=== PATIENT | female | born 1935 | race Two or more races ===

== ENCOUNTER 2021-08-02 15:42 | Inpatient (IN) | payer MEDICARE ==
[~2021-08-02] VITALS: Ht 162.6 cm; Wt 103.2 kg
[2021-08-02] MEDS ORDERED: SODIUM CHLORIDE 0.9% 1,000 ML IV ONE ×3 (16:00→19:30)
[2021-08-02] MEDS ORDERED: ASPirin 81 mg TAB PO ONE (16:00)
[2021-08-02 16:25] LABS: Basophils # (auto) 0 10 ^3/uL (0-0.2); Basophils % (auto) 0.1 % (0.0-2.0); Eosinophils # (auto) 0 10 ^3/uL (0-0.8); Hematocrit 38.4 % (36.0-46.0); Hemoglobin 13.1 g/dL (12.2-16.2); Lymphocytes # (auto) 0.7 10 ^3/uL (0.4-5.4); Lymphocytes % (auto) 12.9 % (10.0-50.0); Mean Corpuscular Hemoglobin 32.4 pg (28.0-32.0); Mean Corpuscular Hgb Conc. 34.2 g/dL (32.0-36.0); Monocytes # (auto) 0.4 10 ^3/uL (0-1.3); Monocytes % (auto) 7.5 % (0.0-12.0); Neutrophils # (auto) 4.6 10 ^3/uL (1.6-8.6); Neutrophils % (auto) 79.5 % (37.0-80.0); Nucleated Red Blood Cells % 0.1 %; Red Blood Cells 4.04 10^6/uL (4.0-5.20); Red Cell Distribution Width 13.6 % (11.8-14.3); White Blood Cell 5.7 10^3/uL (4.4-10.8)
[2021-08-02] MEDS ORDERED: ONDANSETRON HCL 4 MG/2 ML VIAL IV ONE (16:30)
[2021-08-02] MEDS ORDERED: MORPHINE SULFATE 4 MG/ML SYR/VIAL IV ONE (16:30)
[2021-08-02] MEDS ORDERED: SODIUM CHLORIDE 0.9% 500 ML IVB ONE (16:30)
[2021-08-02 16:42] LABS: Albumin 3.2 g/dL (3.4-5.0); BUN/Creatinine Ratio 22.2; Calcium 8.9 mg/dL (8.5-10.1); Magnesium 2.3 mg/dL (1.6-2.6)
[2021-08-02 16:44] LABS: Bilirubin, Total 0.3 mg/dL (0.2-1.0); Total Protein 7.4 g/dL (6.4-8.2)
[2021-08-02 16:50] LABS: Potassium 2.9 mmol/L (3.5-5.1)
[2021-08-02] MEDS ORDERED: POTASSIUM EFFERVESENT TAB 25 MEQ PO ONE (17:00)
[2021-08-02] MEDS ORDERED: NITROGLYCERIN 0.4 MG SL TAB SL PRN ×2 (18:45→19:30)
[2021-08-02] MEDS ORDERED: LACTATED RINGER'S 1,000 ML IV ONE (18:45)
[2021-08-02] MEDS ORDERED: MORPHINE SULFATE INJECTION 2 MG/ML SYRG IV PRN ×3 (18:45→19:30)
[2021-08-02] MEDS ORDERED: POTASSIUM CHLORIDE 80 MEQ, LIDOCAINE 1% (LOCAL ANESTH.) 6 ML in SODIUM CHL 0.9% 500 ML IV ONE (18:45)
[2021-08-02] MEDS ORDERED: metroNIDAZOLE 500MG/100ML 100 ML IV ONE (19:30)
[2021-08-02] MEDS ORDERED: LORazepam 0.5 MG TAB PO PRN (19:30)
[2021-08-02] MEDS ORDERED: FAMOTIDINE (10MG/ML) 2ML VL IV ONE (19:30)
[2021-08-02] MEDS ORDERED: DOCUSATE SOD 100 MG CAP PO PRN (19:30)
[2021-08-02] MEDS ORDERED: ALUM & MAG HYDROX-SIMETH LIQ(MAALOX) 30 ML PO PRN (19:30)
[2021-08-02] MEDS ORDERED: cefTRIAXone 1GM/50ML D5W 50 ML IV ONE (19:30)
[2021-08-02] MEDS ORDERED: HYDROcodone-ACET 5/325MG TAB PO PRN (19:30)
[2021-08-02] MEDS ORDERED: SOD CHL 0.9%/ KCL 20MEQ 1,000 ML IV SCH (19:30)
[2021-08-02] MEDS: ONDANSETRON HCL 4 MG/2 ML VIAL IV PRN (20:14)
[2021-08-02] MEDS: metroNIDAZOLE 500MG/100ML 100 ML IV SCH (21:59)
[2021-08-02] MEDS: FLORASTOR (S. BOULARDII) 250 MG CAP PO SCH (22:00)
[2021-08-02 23:10] VITALS: BP 150/64
[2021-08-03 00:03] VITALS: BP 150/64
[2021-08-03] MEDS ORDERED: POTASSIUM CHL 20 Meq TABLET PO ONE (00:45)
[2021-08-03] MEDS: POTASSIUM CHL 20MEQ/100ML 100 ML IV SCH ×2 (01:00→02:22)
[2021-08-03] MEDS ORDERED: HYDR-4833 PO (01:08)
[2021-08-03 05:00] VITALS: BP 151/62
[2021-08-03] MEDS: metroNIDAZOLE 500MG/100ML 100 ML IV SCH (06:46)
[2021-08-03 07:06] LABS: Basophils # (auto) 0 10 ^3/uL (0-0.2); Eosinophils # (auto) 0 10 ^3/uL (0-0.8); Hematocrit 34.8 % (36.0-46.0); Hemoglobin 11.7 g/dL (12.2-16.2); Lymphocytes # (auto) 1.1 10 ^3/uL (0.4-5.4); Lymphocytes % (auto) 10.1 % (10.0-50.0); Mean Corpuscular Hgb Conc. 33.5 g/dL (32.0-36.0); Mean Corpuscular Volume 95.5 fL (80.0-100.0); Monocytes # (auto) 0.8 10 ^3/uL (0-1.3); Monocytes % (auto) 7.3 % (0.0-12.0); Neutrophils # (auto) 9.2 10 ^3/uL (1.6-8.6); Neutrophils % (auto) 82.6 % (37.0-80.0); Nucleated Red Blood Cells % 0.1 %; Red Blood Cells 3.65 10^6/uL (4.0-5.20); Red Cell Distribution Width 13.4 % (11.8-14.3); White Blood Cell 11.1 10^3/uL (4.4-10.8)
[2021-08-03 07:15] LABS: Calcium 8.2 mg/dL (8.5-10.1); Magnesium 2.3 mg/dL (1.6-2.6); Potassium 3.8 mmol/L (3.5-5.1)
[2021-08-03 07:16] LABS: INR 1.01 (0.9-1.15); Partial Thromboplastin Time 33.8 sec (23.6-33.0)
[2021-08-03 07:21] LABS: BUN/Creatinine Ratio 25.6; Bilirubin, Total 0.2 mg/dL (0.2-1.0); Phosphorus 2.8 mg/dL (2.5-4.90); Total Protein 6.3 g/dL (6.4-8.2)
[2021-08-03 09:00] VITALS: BP 144/62
[2021-08-03] MEDS: FLORASTOR (S. BOULARDII) 250 MG CAP PO SCH ×2 (09:25→22:33)
[2021-08-03] MEDS: FAMOTIDINE (10MG/ML) 2ML VL IV SCH (09:25)
[2021-08-03] MEDS: cefTRIAXone 1GM/50ML D5W 50 ML IV SCH (09:25)
[2021-08-03] MEDS: ONDANSETRON HCL 4 MG/2 ML VIAL IV PRN (09:31)
[2021-08-03] MEDS ORDERED: ENOXAPARIN SOD 40 MG/0.4 ML SYRINGE SC SCH (10:00)
[2021-08-03 13:13] VITALS: BP 149/59
[2021-08-03 16:49] VITALS: BP 128/50
[2021-08-03 22:00] VITALS: BP 145/85
[2021-08-03] MEDS: ENOXAPARIN SOD 40 MG/0.4 ML SYRINGE SC SCH (22:33)
[2021-08-04 05:00] VITALS: BP 147/77
[2021-08-04 09:00] VITALS: BP 137/41
[2021-08-04] MEDS: cefTRIAXone 1GM/50ML D5W 50 ML IV SCH (09:40)
[2021-08-04] MEDS: ENOXAPARIN SOD 40 MG/0.4 ML SYRINGE SC SCH ×2 (09:40→21:34)
[2021-08-04] MEDS: FLORASTOR (S. BOULARDII) 250 MG CAP PO SCH ×2 (09:41→21:33)
[2021-08-04] MEDS: FAMOTIDINE (10MG/ML) 2ML VL IV SCH (09:41)
[2021-08-04 12:59] VITALS: BP 145/37
[2021-08-04] MEDS ORDERED: DOPamine 1600MCG/ML D5W 250 ML IV SCH ×3 (13:00→15:30)
[2021-08-04] MEDS ORDERED: FUROSEMIDE 20 MG/2 ML VIAL IV ONE (15:30)
[2021-08-04 17:00] VITALS: BP 132/78
[2021-08-04] MEDS: ERGOCALCIFEROL 50,000 UNIT(1.25MG) CAP PO SCH (18:09)
[2021-08-04] MEDS: ACETAMINOPHEN 325 MG TAB PO PRN (21:34)
[2021-08-04 22:00] VITALS: BP 151/56
[2021-08-05] VITALS (8 sets, daily range): BP systolic 94–167; BP diastolic 51–83
[2021-08-05] MEDS ORDERED: DIGOXIN (250MCG/ML) 2 ML AMPULE ONE (01:51)
[2021-08-05] MEDS ORDERED: DIGOXIN (250MCG/ML) 2 ML AMPULE IV ONE ×2 (02:00→02:45)
[2021-08-05 08:13] LABS: BUN/Creatinine Ratio 21.9; Calcium 8.4 mg/dL (8.5-10.1); Magnesium 2.5 mg/dL (1.6-2.6); Potassium 3.6 mmol/L (3.5-5.1)
[2021-08-05 09:22] LABS: Phosphorus 1.7 mg/dL (2.5-4.90)
[2021-08-05] MEDS ORDERED: ENOXAPARIN SOD 100 MG/1 ML SYRINGE SC SCH (10:00)
[2021-08-05] MEDS ORDERED: FUROSEMIDE 20 MG/2 ML VIAL IV ONE (12:00)
[2021-08-05] MEDS: FLORASTOR (S. BOULARDII) 250 MG CAP PO SCH ×2 (12:02→22:06)
[2021-08-05] MEDS ORDERED: POTASSIUM PHOSPHATE 26.4 MEQ in SODIUM CHL 0.9% 100 ML IV ONE (12:30)
[2021-08-05] MEDS: ENOXAPARIN SOD 60 MG/0.6 ML SYRINGE SC SCH (22:07)
[2021-08-06 05:30] VITALS: BP 150/65
[2021-08-06 07:27] LABS: Calcium 8.1 mg/dL (8.5-10.1); Potassium 3.5 mmol/L (3.5-5.1)
[2021-08-06 07:31] LABS: BUN/Creatinine Ratio 34.7; Magnesium 2.6 mg/dL (1.6-2.6); Phosphorus 2.6 mg/dL (2.5-4.90)
[2021-08-06 09:00] VITALS: BP 160/77
[2021-08-06] MEDS ORDERED: POTASSIUM CHL 20 Meq TABLET PO ONE (09:15)
[2021-08-06] MEDS: ENOXAPARIN SOD 60 MG/0.6 ML SYRINGE SC SCH ×2 (11:41→21:08)
[2021-08-06] MEDS: FLORASTOR (S. BOULARDII) 250 MG CAP PO SCH ×2 (11:41→21:08)
[2021-08-06 13:00] VITALS: BP 153/58
[2021-08-06] MEDS: DOPamine 1600MCG/ML D5W 250 ML IV SCH (13:55)
[2021-08-06 17:00] VITALS: BP 158/73
[2021-08-06] MEDS ORDERED: REMDESIVIR PER PHARMACY 0 ML IV SCH (22:00)
[2021-08-06] MEDS ORDERED: REMDESIVIR 200 MG in NS 210ml LOADING DOSE ADULT IV ONE (22:30)
[2021-08-06 23:05] VITALS: BP 134/59
[2021-08-06 23:13] VITALS: BP 153/63
[2021-08-07] VITALS (9 sets, daily range): BP systolic 138–149; BP diastolic 53–96
[2021-08-07 07:34] LABS: Potassium 3.6 mmol/L (3.5-5.1)
[2021-08-07 07:41] LABS: Albumin 2.5 g/dL (3.4-5.0); BUN/Creatinine Ratio 22.7; Bilirubin, Total 0.6 mg/dL (0.2-1.0); Calcium 8.2 mg/dL (8.5-10.1); Total Protein 6.2 g/dL (6.4-8.2)
[2021-08-07] MEDS: ENOXAPARIN SOD 60 MG/0.6 ML SYRINGE SC SCH ×2 (10:22→22:08)
[2021-08-07] MEDS: FLORASTOR (S. BOULARDII) 250 MG CAP PO SCH ×2 (10:22→22:08)
[2021-08-07] MEDS: DOPamine 1600MCG/ML D5W 250 ML IV SCH (14:04)
[2021-08-07] MEDS: REMDESIVIR 100mg 100 MG in SODIUM CHL 0.9% 230 ML IV SCH (14:04)
[2021-08-07] MEDS ORDERED: POTASSIUM CHL 20 Meq TABLET PO ONE (14:30)
[2021-08-08 05:00] VITALS: BP 151/51
[2021-08-08 06:53] LABS: Albumin 2.4 g/dL (3.4-5.0); BUN/Creatinine Ratio 29.2; Calcium 8.2 mg/dL (8.5-10.1); Potassium 4.1 mmol/L (3.5-5.1)
[2021-08-08 06:56] LABS: Bilirubin, Total 0.6 mg/dL (0.2-1.0); Total Protein 5.9 g/dL (6.4-8.2)
[2021-08-08 09:00] VITALS: BP 112/66
[2021-08-08] MEDS: ENOXAPARIN SOD 60 MG/0.6 ML SYRINGE SC SCH ×2 (10:59→21:39)
[2021-08-08] MEDS: FLORASTOR (S. BOULARDII) 250 MG CAP PO SCH ×2 (10:59→21:39)
[2021-08-08] MEDS: DOPamine 1600MCG/ML D5W 250 ML IV SCH (12:45)
[2021-08-08 13:00] VITALS: BP 153/56
[2021-08-08] MEDS: REMDESIVIR 100mg 100 MG in SODIUM CHL 0.9% 230 ML IV SCH (14:46)
[2021-08-08 17:00] VITALS: BP 139/54
[2021-08-08 22:00] VITALS: BP 138/65
[2021-08-09 05:00] VITALS: BP 123/57
[2021-08-09 07:21] LABS: Potassium 3.3 mmol/L (3.5-5.1)
[2021-08-09 07:29] LABS: Albumin 2.4 g/dL (3.4-5.0); BUN/Creatinine Ratio 27.1; Bilirubin, Total 0.7 mg/dL (0.2-1.0); Calcium 7.8 mg/dL (8.5-10.1); Total Protein 5.9 g/dL (6.4-8.2)
[2021-08-09 09:00] VITALS: BP 130/58
[2021-08-09] MEDS: FLORASTOR (S. BOULARDII) 250 MG CAP PO SCH ×2 (10:26→22:00)
[2021-08-09] MEDS: ENOXAPARIN SOD 60 MG/0.6 ML SYRINGE SC SCH ×2 (10:27→22:00)
[2021-08-09] MEDS: DOPamine 1600MCG/ML D5W 250 ML IV SCH (12:45)
[2021-08-09 13:00] VITALS: BP 124/75
[2021-08-09] MEDS: REMDESIVIR 100mg 100 MG in SODIUM CHL 0.9% 230 ML IV SCH (15:07)
[2021-08-09 17:00] VITALS: BP 136/68
[2021-08-09] MEDS ORDERED: POTASSIUM EFFERVESENT TAB 25 MEQ PO ONE (19:00)
[2021-08-09 21:27] VITALS: BP 124/60
[2021-08-09 22:00] VITALS: BP 131/54
[2021-08-10 05:00] VITALS: BP 116/53
[2021-08-10 07:06] LABS: Potassium 3.2 mmol/L (3.5-5.1)
[2021-08-10 07:14] LABS: Albumin 2.4 g/dL (3.4-5.0); BUN/Creatinine Ratio 20.5; Bilirubin, Total 0.8 mg/dL (0.2-1.0); Calcium 7.9 mg/dL (8.5-10.1); Total Protein 5.7 g/dL (6.4-8.2)
[2021-08-10 09:00] VITALS: BP 106/38
[2021-08-10] MEDS: FLORASTOR (S. BOULARDII) 250 MG CAP PO SCH ×2 (10:13→21:36)
[2021-08-10] MEDS: ENOXAPARIN SOD 60 MG/0.6 ML SYRINGE SC SCH ×2 (10:13→21:37)
[2021-08-10 13:16] VITALS: BP 140/61
[2021-08-10] MEDS: REMDESIVIR 100mg 100 MG in SODIUM CHL 0.9% 230 ML IV SCH (15:08)
[2021-08-10] MEDS ORDERED: POTASSIUM CHL 20 Meq TABLET PO ONE (16:15)
[2021-08-10 17:00] VITALS: BP 133/60
[2021-08-10 21:56] VITALS: BP 105/55
[2021-08-11 05:00] VITALS: BP 126/51
[2021-08-11 09:10] VITALS: BP 123/54
[2021-08-11] MEDS: FLORASTOR (S. BOULARDII) 250 MG CAP PO SCH ×2 (10:58→21:51)
[2021-08-11] MEDS: ENOXAPARIN SOD 60 MG/0.6 ML SYRINGE SC SCH ×2 (10:58→21:51)
[2021-08-11 12:10] VITALS: BP 111/58
[2021-08-11 17:02] VITALS: BP 112/48
[2021-08-11] MEDS: ERGOCALCIFEROL 50,000 UNIT(1.25MG) CAP PO SCH (21:51)
[2021-08-11 22:00] VITALS: BP 131/32
[2021-08-12 05:00] VITALS: BP 120/42
[2021-08-12] MEDS: ACETAMINOPHEN 325 MG TAB PO PRN (07:21)
[2021-08-12 09:00] VITALS: BP 110/50
[2021-08-12] MEDS: FLORASTOR (S. BOULARDII) 250 MG CAP PO SCH ×2 (10:00→21:44)
[2021-08-12] MEDS: APIXABAN 5 MG TAB PO SCH ×2 (10:00→21:43)
[2021-08-12 13:00] VITALS: BP 123/79
[2021-08-12 16:54] VITALS: BP 128/83
[2021-08-12 17:00] VITALS: BP 136/55
[2021-08-12 22:00] VITALS: BP 126/56
[2021-08-13 05:00] VITALS: BP 146/94
[2021-08-13] MEDS: APIXABAN 5 MG TAB PO SCH (09:31)
[2021-08-13] MEDS: FLORASTOR (S. BOULARDII) 250 MG CAP PO SCH (09:31)
== END 2021-08-13 09:58 | DRG 177 ==
LOC: EDBD 15:42 → ER 15:42 → TELE 19:28 → TELE-EAST 23:13
PROVIDERS: ADMIT Hospitalist; ATTEND Internal Medicine
PROC: XW033E5 Introduction of Remdesivir Anti-infective into Peripheral Vein, Percutaneous Approach, New Technology Group 5 (ICD-10-PCS; principal; 2021-08-06)
DX: U07.1 COVID-19 (principal); J12.82 Pneumonia due to coronavirus disease 2019; E44.1 Mild protein-calorie malnutrition; A08.39 Other viral enteritis; J44.0 Chronic obstructive pulmonary disease with (acute) lower respiratory infection; K21.9 Gastro-esophageal reflux disease without esophagitis; E87.6 Hypokalemia; N18.31 Chronic kidney disease, stage 3a; E86.0 Dehydration; E55.9 Vitamin D deficiency, unspecified; M19.90 Unspecified osteoarthritis, unspecified site; R00.1 Bradycardia, unspecified; F17.210 Nicotine dependence, cigarettes, uncomplicated; I35.1 Nonrheumatic aortic (valve) insufficiency; K44.9 Diaphragmatic hernia without obstruction or gangrene; R53.81 Other malaise; I12.9 Hypertensive chronic kidney disease with stage 1 through stage 4 chronic kidney disease, or unspecified chronic kidney disease; I48.0 Paroxysmal atrial fibrillation; Z90.49 Acquired absence of other specified parts of digestive tract; Z90.710 Acquired absence of both cervix and uterus; Z91.81 History of falling
CPT/HCPCS: 36415; 71045; 74176; 80048; 80053; 82306; 83036; 83690; 83735; 83880; 84100; 84439; 84443; 84484; 84550; 85025; 85610; 85730; 87040; 87426; 87493; 93005; 93306; 96361; 96374; 96375; 97110; 97530; G0378; J0696; J2001; J2405; J3480; J3490